=== PATIENT | male | born 1955 | race Caucasian/White ===

== ENCOUNTER 2016-10-24 06:30 | Day surgery (SDC) | payer BC ==
[~2016-10-24 06:30] MED LIST: Lactated Ringers 1,000 ML IV SCH; ceFAZolin 1 GM in Premix Bag 1 BAG IV ONE
--- NOTE | 2016-10-24 07:21 | PCM.PREANE ---
Preanesthetic Assessment - Anesthesia/Transfusion/Family Hx Anesthesia History: Prior Anesthesia Without Reaction Family History of Anesthesia Reaction: No Transfusion History: No Prior Transfusion(s) - Review of Systems General: No Symptoms Pulmonary: Cough Cardiovascular: No Symptoms Gastrointestinal: No symptoms Neurological: No Symptoms Other: Reports: None - Physical Assessment NPO Status Date: 10/23/16 O2 Sat by Pulse Oximetry: 96 Respiratory Rate: 16 Vital Signs: Last Vital Signs Temp 36.5 C 10/24/16 06:52 Pulse 55 L 10/24/16 06:52 Resp 16 10/24/16 06:52 BP 151/84 H 10/24/16 06:52 Pulse Ox 96 10/24/16 06:52 Height: 1.65 m Weight: 80.286 kg ASA Class: 3 Mental Status: Alert & Oriented x3 Airway Class: Mallampati = 2 Dentition: Reports: Normal Dentition ROM/Head Extension: Limited/Partial (marked limitation of cervical extension, s/ p posterior cerf fusion) - Allergies Allergies/Adverse Reactions: Allergies Allergy/AdvReac Type Severity Reaction Status Date / Time Sulfa (Sulfonamide Allergy Rash Verified 10/18/16 12:40 Antibiotics) - Anesthesia Plan Pre-Op Medication Ordered: None - Acknowledgements Anesthesia Type Planned: General Anesthesia Pt an Appropriate Candidate for the Planned Anesthesia: Yes Alternatives and Risks of Anesthesia Discussed w Pt/Guardian: Yes Pt/Guardian Understands and Agrees with Anesthesia Plan: Yes Additional Comments: problem list: CAD s/p stents x2 2014, Asthma/psilicosis (uses inhalers for chronic cough and wheezing), HTN, thyroid replacement, post herpetic neuralgia ( on gabipentin) PreAnesthesia Questionnaire HEENT History: Reports: Cataract Cardiovascular History: Reports: High Cholesterol, Hypertension, [place] Respiratory History: Reports: None Gastrointestinal History: Reports: None Genitourinary History: Reports: None Musculoskeletal History: Reports: Back Pain, Chronic, Fracture, Neck Pain, Chronic Other Musculoskeletal History: hx of fx neck and back, hardware in neck, hx of fx right fibula Neurological History: Reports: Other (See Below) Other Neuro History: hx of motion sickness Psychiatric History: Reports: None Endocrine/Metabolic History: Reports: Hypothyroidism Hematologic History: Reports: None Immunologic History: Reports: None Oncologic (Cancer) History: Reports: None Dermatologic History: Reports: None - Past Surgical History Head Surgeries/Procedures: Reports: None HEENT Surgical History: Reports: Cataract Surgery Cardiovascular Surgical History: Reports: Coronary Artery Stent Other Cardiovascular Surgeries/Procedures: states had [place] during Angioplasty, had 2 stents placed Respiratory Surgical History: Reports: None GI Surgical History: Reports: Appendectomy Male Surgical History: Reports: Renal Calculus Endocrine Surgical History: Reports: None Neurological Surgical History: Reports: None Musculoskeletal Surgical History: Reports: ORIF Other Musculoskeletal Surgeries/Procedures:: back and neck Oncologic Surgical History: Reports: None Dermatological Surgical History: Reports: None - SUBSTANCE USE Smoking Status *Q: Never Smoker Recreational Drug Use History: No - HOME MEDS Home Medications: Home Meds Levothyroxine Sodium [Levo-T] 112 mcg PO DAILY 10/18/16 [History] Losartan [Cozaar] 50 mg PO DAILY 10/18/16 [History] atorvaSTATin Calcium [Atorvastatin Calcium] 40 mg PO DAILY 10/18/16 [History] - CURRENT (IN HOUSE) MEDS Current Meds: Current Medications Lactated Ringer's (Ringers, Lactated) 1,000 mls @ 100 mls/hr IV ASDIRECTED SANDRA Discontinued Medications Lactated Ringer's (Ringers, Lactated) 1,000 mls @ 100 mls/hr IV ASDIRECTED SANDRA Cefazolin Sodium/Dextrose 1 gm (/ Premix) 50 mls @ 100 mls/hr IV ONCALL ONE Stop: 10/22/16 00:30 Cefazolin Sodium/Dextrose 1 gm (/ Premix) 50 mls @ 100 mls/hr IV ONCALL ONE Stop: 10/24/16 00:30
[2016-10-24] MEDS ORDERED: Midazolam 1 MG/ML 2 ML SDV ONE (07:25)
[2016-10-24] MEDS ORDERED: fentaNYL 250 MCG/5 ML SDV ONE (07:25)
[2016-10-24] MEDS ORDERED: Lidocaine 2% 5 ML SDV ONE (07:25)
[2016-10-24] MEDS ORDERED: Propofol 200 MG/20 ML SDV ONE (07:25)
[2016-10-24] MEDS ORDERED: Neostigmine Methylsulfate 1 MG/ML 5 ML Syringe ONE (07:26)
[2016-10-24] MEDS ORDERED: Ondansetron 4 MG/2 ML SDV ONE (07:26)
[2016-10-24] MEDS ORDERED: Ketorolac 30 MG/ML SDV ONE (07:26)
[2016-10-24] MEDS ORDERED: Rocuronium 10 MG/ML 10 ML Syringe ONE (07:26)
[2016-10-24] MEDS ORDERED: Iopamidol 408 MG/ML 50 ML SDV ONE (07:27)
[2016-10-24] MEDS ORDERED: fentaNYL 100 MCG/2 ML SDV ONE (08:43)
[2016-10-24] MEDS ORDERED: fentaNYL 100 MCG/2 ML SDV IVPUSH PRN (09:12)
[2016-10-24] MEDS ORDERED: Labetalol 5 MG/ML 5 ML Syringe ONE (09:57)
--- NOTE | 2016-10-24 10:34 | PCM.POSTAN ---
POST ANESTHESIA ASSESSMENT - MENTAL STATUS Mental Status: alert, oriented - RESPIRATORY Respiratory Status: respiratory rate WNL, airway patent, O2 saturation stable - CARDIOVASCULAR CV Status: pulse rate WNL, blood pressure stable - GASTROINTESTINAL GI Status: no symptoms - POST OP HYDRATION Hydration Status: adequate & stable
--- NOTE | 2016-10-24 10:56 | OR ---
SURGEON: Jazzy Coughlin M.D. DATE OF PROCEDURE: 10/24/2016 PREOPERATIVE DIAGNOSIS: Large right renal pelvis stone, 2.4 cm. POSTOPERATIVE DIAGNOSIS: Large right renal pelvis stone, 2.4 cm. OPERATION: Cystoscopy, ureteroscopy, laser lithotripsy partial, and double-J stent placement. DESCRIPTION OF PROCEDURE: The patient was given general anesthesia, placed in dorsal lithotomy position, prepped and draped in sterile drapes. Cystourethroscopy was done that was normal. No prostatic enlargement or obstruction. A guidewire and a Glidewire were advanced in the right ureter all the way up into the renal pelvis. The lower ureter was then dilated using the UroMax II balloon dilator to approximately 15-Ukrainian. The Zillow flexible ureteroscope was advanced over the guidewire. The laser fiber was then introduced and initially at 0.2 for energy, a fair amount of dusting was done. Later in the procedure, the energy was increased to 0.4, and eventually to 0.6. It took about an hour and half of applying the laser energy to the stone. The stone was still relatively large and I suspect we are left with about 2 cm of stone. At that point, a 7-Ukrainian 26 cm double-J stent was placed in the ureter and up into the renal pelvis the lower end is in the bladder. The bladder was emptied. The position of the stent was confirmed with fluoroscopy and the patient was moved to recovery room in good condition. Estimated blood loss was minimal. The patient tolerated the procedure well and was moved to recovery in good condition. GREG / BENJAMIN /[id number]
[2016-10-24 11:38] VITALS: BP 129/76
--- NOTE | 2016-10-24 11:50 | PCM48HPAN ---
Post Anesthesia Note - EVALUATION WITHIN 48HRS OF ANESTHETIC Vital Signs in Normal Range: Yes Patient Participated in Evaluation: Yes Respiratory Function Stable: Yes Airway Patent: Yes Cardiovascular Function Stable: Yes Hydration Status Stable: Yes Pain Control Satisfactory: Yes Nausea and Vomiting Control Satisfactory: Yes Mental Status Recovered: Yes
--- NOTE | 2016-10-28 08:49 | CR ---
EXAMINATION: Lithotripsy HISTORY: Stone COMPARISON: 10/17/2016 TECHNIQUE: Single view FINDINGS/IMPRESSION: Operative control film demonstrates a pigtail stent projecting near a right catarino al stone.
== END 2016-10-24 12:55 | disposition home or self-care (01) ==
LOC: MW.SDS 06:30
PROVIDERS: ATTEND Urology
PROC: 0TF38ZZ Fragmentation in Right Kidney Pelvis, Via Natural or Artificial Opening Endoscopic (ICD-10-PCS; principal; 2016-10-24)
PROC: 0T768DZ Dilation of Right Ureter with Intraluminal Device, Via Natural or Artificial Opening Endoscopic (ICD-10-PCS; 2016-10-24)
DX: N20.0 Calculus of kidney (principal); I25.2 Old myocardial infarction; I10 Essential (primary) hypertension; I25.10 Atherosclerotic heart disease of native coronary artery without angina pectoris; E78.00 Pure hypercholesterolemia, unspecified; J45.909 Unspecified asthma, uncomplicated; B02.29 Other postherpetic nervous system involvement; E03.9 Hypothyroidism, unspecified; Z88.2 Allergy status to sulfonamides; Z79.899 Other long term (current) drug therapy; Z95.5 Presence of coronary angioplasty implant and graft; Z98.49 Cataract extraction status, unspecified eye; Z90.49 Acquired absence of other specified parts of digestive tract; Z98.890 Other specified postprocedural states
CPT/HCPCS: 52356; 76001; J0690; J1885; J2250; J2405; J3010; Q9966; 00918; C1769; C1874; J2704

== ENCOUNTER 2016-11-14 10:01 | Day surgery (SDC) | payer BC ==
[~2016-11-14 10:01] MED LIST changes: +Iopamidol 408 MG/ML 50 ML SDV ONE; -ceFAZolin 1 GM in Premix Bag 1 BAG IV ONE
--- NOTE | 2016-11-14 11:08 | PCM.PREANE ---
Preanesthetic Assessment - Procedure Proposed Procedure: ESWL fro right renal pelvis stone - Anesthesia/Transfusion/Family Hx Anesthesia History: Prior Anesthesia Without Reaction (3 weeks ago underwent laser lithotripsy via ureteroscopy) Family History of Anesthesia Reaction: No Transfusion History: No Prior Transfusion(s) - Review of Systems General: Fatigue (notes relating to time of cardiac problems 2 yr ago) Pulmonary: No Symptoms Cardiovascular: Other (s/p 2 stents in coronaries 2 yr ago; hypertension and hyperlipidemia) Gastrointestinal: No symptoms Neurological: No Symptoms Other: Reports: Thyroid Problems - Physical Assessment Height: 0 in Weight: 0 oz ASA Class: 3 Mental Status: Alert & Oriented x3 Airway Class: Mallampati = 2 Dentition: Reports: Normal Dentition Thyro-Mental Finger Breadths: 4 (jut jaw) Mouth Opening Finger Breadths: 3 ROM/Head Extension: Full Lungs: Clear to auscultation, Normal respiratory effort Cardiovascular: Regular Rate, Regular Rhythm, No Murmurs - Allergies Allergies/Adverse Reactions: Allergies Allergy/AdvReac Type Severity Reaction Status Date / Time Sulfa (Sulfonamide Allergy Rash Verified 10/18/16 12:40 Antibiotics) - Blood Blood Available: No Product(s) Available: None - Acknowledgements Anesthesia Type Planned: General Anesthesia Pt an Appropriate Candidate for the Planned Anesthesia: Yes Alternatives and Risks of Anesthesia Discussed w Pt/Guardian: Yes Pt/Guardian Understands and Agrees with Anesthesia Plan: Yes PreAnesthesia Questionnaire HEENT History: Reports: Cataract Cardiovascular History: Reports: High Cholesterol, Hypertension, [place] Respiratory History: Reports: None Gastrointestinal History: Reports: None Genitourinary History: Reports: Renal Calculus Musculoskeletal History: Reports: Back Pain, Chronic, Fracture, Neck Pain, Chronic Other Musculoskeletal History: hx of fx neck and back, hardware in neck, hx of fx right fibula Neurological History: Reports: Other (See Below) Other Neuro History: hx of motion sickness Psychiatric History: Reports: None Endocrine/Metabolic History: Reports: Hypothyroidism Hematologic History: Reports: None Immunologic History: Reports: None Oncologic (Cancer) History: Reports: None Dermatologic History: Reports: None - Past Surgical History Head Surgeries/Procedures: Reports: None HEENT Surgical History: Reports: Cataract Surgery Cardiovascular Surgical History: Reports: Coronary Artery Stent Other Cardiovascular Surgeries/Procedures: states had [place] during Angioplasty, had 2 stents placed Respiratory Surgical History: Reports: None GI Surgical History: Reports: Appendectomy Male Surgical History: Reports: Lithotripsy (ESWL), Renal Calculus Endocrine Surgical History: Reports: None Neurological Surgical History: Reports: None Musculoskeletal Surgical History: Reports: ORIF Other Musculoskeletal Surgeries/Procedures:: back and neck Oncologic Surgical History: Reports: None Dermatological Surgical History: Reports: None - SUBSTANCE USE Smoking Status *Q: Never Smoker Recreational Drug Use History: No - HOME MEDS Home Medications: Home Meds Levothyroxine Sodium [Levo-T] 112 mcg PO DAILY 10/18/16 [History] Losartan [Cozaar] 50 mg PO DAILY 10/18/16 [History] atorvaSTATin Calcium [Atorvastatin Calcium] 40 mg PO DAILY 10/18/16 [History] - CURRENT (IN HOUSE) MEDS Current Meds: Current Medications Lactated Ringer's (Ringers, Lactated) 1,000 mls @ 100 mls/hr IV ASDIRECTED SANDRA Discontinued Medications Iopamidol (Isovue-200 (41%)) Confirm Administered Dose 50 ml .ROUTE .STK-MED ONE Stop: 11/14/16 07:02
[2016-11-14] MEDS ORDERED: Lidocaine 2% 5 ML SDV ONE (11:38)
[2016-11-14] MEDS ORDERED: Midazolam 1 MG/ML 2 ML SDV ONE (11:39)
[2016-11-14] MEDS ORDERED: Propofol 200 MG/20 ML SDV ONE (11:39)
[2016-11-14] MEDS ORDERED: fentaNYL 250 MCG/5 ML SDV ONE (11:40)
[2016-11-14] MEDS ORDERED: ceFAZolin 1 GM Vial ONE (12:35)
[2016-11-14] MEDS ORDERED: ePHEDrine 50 MG/ML SDV ONE (12:46)
[2016-11-14] MEDS ORDERED: fentaNYL 100 MCG/2 ML SDV IVPUSH PRN (13:24)
[2016-11-14 14:51] VITALS: BP 124/74
--- NOTE | 2016-11-14 15:18 | OR ---
SURGEON: Jazzy Coughlin M.D. DATE OF PROCEDURE: 11/14/2016 PREOPERATIVE DIAGNOSIS: Large right renal pelvis stone, initially 2.4 cm treated with laser the first time, it is now about 2 cm. POSTOPERATIVE DIAGNOSIS: Large right renal pelvis stone, initially 2.4 cm treated with laser the first time, it is now about 2 cm. OPERATION: Extracorporeal shock wave lithotripsy. DESCRIPTION OF PROCEDURE: The patient was given general anesthesia. The position of the patient was adjusted, so the stone could be treated and received a total of 2000 shocks, monitoring as we go along the stone seem to have changed, however, with at least two or three relatively good size pieces still intact. With that done, the procedure was terminated. The stent will be left in. The patient tolerated the procedure well. He was moved to recovery room in good condition. He will be seen in the office in 2 weeks to arrange for the next ESWL in about 3 weeks. GREG / BENJAMIN /[id number]
== END 2016-11-14 15:21 | disposition home or self-care (01) ==
LOC: MW.SDS 10:01
PROVIDERS: ATTEND Urology
DX: N20.0 Calculus of kidney (principal); Z88.2 Allergy status to sulfonamides; Z79.899 Other long term (current) drug therapy
CPT/HCPCS: 50590; J0690; J2250; J3010; J7120; 00872; J2704; Q9966

== ENCOUNTER 2016-12-12 06:34 | Day surgery (SDC) | payer BC ==
[2016-12-12] MEDS ORDERED: Lactated Ringers 1,000 ML IV SCH (07:00)
[2016-12-12] MEDS ORDERED: Rocuronium 10 MG/ML 10 ML Syringe ONE (07:11)
[2016-12-12] MEDS ORDERED: Ondansetron 4 MG/2 ML SDV ONE (07:11)
[2016-12-12] MEDS ORDERED: Midazolam 1 MG/ML 2 ML SDV ONE (07:11)
[2016-12-12] MEDS ORDERED: Neostigmine Methylsulfate 1 MG/ML 5 ML Syringe ONE (07:11)
[2016-12-12] MEDS ORDERED: fentaNYL 250 MCG/5 ML SDV ONE (07:11)
[2016-12-12] MEDS ORDERED: Lidocaine 2% 5 ML SDV ONE (07:11)
[2016-12-12] MEDS ORDERED: Propofol 200 MG/20 ML SDV ONE (07:11)
--- NOTE | 2016-12-12 07:12 | PCM.PREANE ---
Preanesthetic Assessment - Anesthesia/Transfusion/Family Hx Anesthesia History: Prior Anesthesia Without Reaction Family History of Anesthesia Reaction: No Transfusion History: No Prior Transfusion(s) Intubation History: Unknown - Review of Systems General: No Symptoms Pulmonary: No Symptoms Cardiovascular: No Symptoms Gastrointestinal: No Symptoms Neurological: No Symptoms Other: Reports: None - Physical Assessment Height: 1.65 m Weight: 78.018 kg ASA Class: 2 Mental Status: Alert & Oriented x3 Airway Class: Mallampati = 2 Dentition: Reports: Normal Dentition Thyro-Mental Finger Breadths: 3 Mouth Opening Finger Breadths: 3 ROM/Head Extension: Limited/Partial Lungs: Clear to Auscultation, Normal Respiratory Effort Cardiovascular: Regular Rate, Regular Rhythm - Allergies Allergies/Adverse Reactions: Allergies Allergy/AdvReac Type Severity Reaction Status Date / Time Sulfa (Sulfonamide Allergy Rash Verified 10/18/16 12:40 Antibiotics) - Blood Blood Available: No - Anesthesia Plan Pre-Op Medication Ordered: None - Acknowledgements Anesthesia Type Planned: General Anesthesia Pt an Appropriate Candidate for the Planned Anesthesia: Yes Alternatives and Risks of Anesthesia Discussed w Pt/Guardian: Yes Pt/Guardian Understands and Agrees with Anesthesia Plan: Yes PreAnesthesia Questionnaire HEENT History: Reports: Cataract Cardiovascular History: Reports: High Cholesterol, Hypertension, [place], Stents (x1) Respiratory History: Reports: Asthma (questionable), SOB (if he walks fast) Gastrointestinal History: Reports: None Genitourinary History: Reports: Renal Calculus Musculoskeletal History: Reports: Back Pain, Chronic, Fracture, Neck Pain, Chronic Other Musculoskeletal History: hx of fx neck and back, hardware in neck, hx of fx right fibula Neurological History: Reports: Other (See Below) Other Neuro History: hx of motion sickness Psychiatric History: Reports: None Endocrine/Metabolic History: Reports: Hypothyroidism Hematologic History: Reports: None Immunologic History: Reports: None Oncologic (Cancer) History: Reports: None Dermatologic History: Reports: None - Past Surgical History Head Surgeries/Procedures: Reports: None HEENT Surgical History: Reports: Cataract Surgery, Naso-Sinus Surgery Cardiovascular Surgical History: Reports: Coronary Artery Stent Other Cardiovascular Surgeries/Procedures: states had [place] during Angioplasty, had 2 stents placed 2 years ago Respiratory Surgical History: Reports: None GI Surgical History: Reports: Appendectomy Male Surgical History: Reports: Lithotripsy (ESWL), Renal Calculus (laser litho) Endocrine Surgical History: Reports: None Neurological Surgical History: Reports: None Musculoskeletal Surgical History: Reports: ORIF Other Musculoskeletal Surgeries/Procedures:: back and neck x3 Oncologic Surgical History: Reports: None Dermatological Surgical History: Reports: None - SUBSTANCE USE Smoking Status *Q: Never Smoker Recreational Drug Use History: No - HOME MEDS Home Medications: Home Meds Levothyroxine Sodium [Levo-T] 112 mcg PO DAILY 10/18/16 [History] Losartan [Cozaar] 50 mg PO DAILY 10/18/16 [History] atorvaSTATin Calcium [Atorvastatin Calcium] 40 mg PO DAILY 10/18/16 [History] oxyCODONE HCl/Acetaminophen [Endocet 7.5-325 mg Tablet] 1 tab PO ASDIRECTED PRN 12/11/16 [History] - CURRENT (IN HOUSE) MEDS Current Meds: Current Medications Lactated Ringer's (Ringers, Lactated) 1,000 mls @ 100 mls/hr IV ASDIRECTED SANDRA
[2016-12-12] MEDS ORDERED: Iopamidol 408 MG/ML 50 ML SDV ONE (07:41)
[2016-12-12] MEDS ORDERED: ePHEDrine 50 MG/ML SDV ONE (08:20)
[2016-12-12] MEDS ORDERED: ceFAZolin 1 GM Vial ONE (08:21)
[2016-12-12] MEDS ORDERED: Phenylephrine/Normal Saline 100 MCG/ML 10 ML Syringe ONE (08:32)
[2016-12-12] MEDS: fentaNYL 100 MCG/2 ML SDV IVPUSH PRN ×2 (09:57→10:02)
--- NOTE | 2016-12-12 10:26 | PCM.POSTAN ---
POST ANESTHESIA ASSESSMENT - MENTAL STATUS Mental Status: Alert, Oriented - RESPIRATORY Respiratory Status: respiratory rate WNL, Airway Patent, O2 Saturation Stable - CARDIOVASCULAR CV Status: Pulse Rate WNL, Blood Pressure Stable - GASTROINTESTINAL GI Status: No Symptoms - PAIN Pain Score: 6 (given fentanyl to lower pain) - POST OP HYDRATION Hydration Status: Adequate & Stable
[2016-12-12 11:26] VITALS: BP 152/87
--- NOTE | 2016-12-12 15:07 | OR ---
SURGEON: Jazzy Coughlin M.D. DATE OF PROCEDURE: 12/12/2016 PREOPERATIVE DIAGNOSIS: Residual stone, right renal pelvis. POSTOPERATIVE DIAGNOSIS: Residual stone, right renal pelvis. OPERATION: Extracorporeal shock wave lithotripsy. DESCRIPTION: Patient was given general anesthesia. Position of the patient is adjusted so the stone could be treated and eventually received a total of 2200 shocks. Looking at the stone during the treatment, the result appeared quite adequate. With that done, the procedure was terminated. The patient was then placed in the frog-leg position. The 22-Surinamese scope was introduced in the bladder without difficulty. The double-J stent was grasped and removed. With that the procedure was done and he was moved to recovery room in good condition. GREG / BENJAMIN /[id number]
== END 2016-12-12 10:50 | disposition home or self-care (01) ==
LOC: MW.SDS 06:34
PROVIDERS: ATTEND Urology
DX: N20.0 Calculus of kidney (principal); Z88.2 Allergy status to sulfonamides; Z79.899 Other long term (current) drug therapy
CPT/HCPCS: 50590; J0690; J2250; J2405; J3010; J7120; 00873; J2704; Q9966

== ENCOUNTER 2017-09-23 07:47 | Day surgery (SDC) | payer BC ==
[~2017-09-23 07:47] MED LIST changes: -Iopamidol 408 MG/ML 50 ML SDV ONE; +Sodium Chloride 0.9% 2.5 ML Syringe FLUSH PRN; +ceFAZolin 1 GM Vial IM ONE
[2017-09-23] MEDS ORDERED: Iopamidol 408 MG/ML 50 ML SDV ONE (08:02)
--- NOTE | 2017-09-23 08:34 | PCM.PREANE ---
Preanesthetic Assessment - Anesthesia/Transfusion/Family Hx Anesthesia History: Prior Anesthesia Without Reaction Family History of Anesthesia Reaction: No Transfusion History: No Prior Transfusion(s) Intubation History: Unknown - Review of Systems General: No Symptoms Pulmonary: No Symptoms Cardiovascular: No Symptoms Gastrointestinal: No Symptoms Neurological: No Symptoms - Physical Assessment NPO Status Date: 09/22/17 O2 Sat by Pulse Oximetry: 95 Respiratory Rate: 16 Vital Signs: Last Vital Signs Temp 36.4 C 09/23/17 08:24 Pulse 48 L 09/23/17 08:24 Resp 16 09/23/17 08:24 BP 159/78 H 09/23/17 08:24 Pulse Ox 95 09/23/17 08:24 Height: 1.65 m Weight: 77.111 kg ASA Class: 3 Mental Status: Alert & Oriented x3 Airway Class: Mallampati = 1 Dentition: Reports: Normal Dentition ROM/Head Extension: Full Lungs: Clear to Auscultation, Normal Respiratory Effort Cardiovascular: Regular Rate, Regular Rhythm - Allergies Allergies/Adverse Reactions: Allergies Allergy/AdvReac Type Severity Reaction Status Date / Time Sulfa (Sulfonamide Allergy Rash Verified 09/18/17 10:38 Antibiotics) - Anesthesia Plan Pre-Op Medication Ordered: None - Acknowledgements Anesthesia Type Planned: General Anesthesia Pt an Appropriate Candidate for the Planned Anesthesia: Yes Alternatives and Risks of Anesthesia Discussed w Pt/Guardian: Yes Pt/Guardian Understands and Agrees with Anesthesia Plan: Yes Additional Comments: PMH: CAD s/p coronary stent in RCA and Cx about 2-3 yr ago, had AMI during analytical lab analyst visit, now off plavix, still on aspirin, last dose yesterday. Also hld , thyroid replacement, htn, ibs (patient reports no dx of DM). PLAN: GA, ETT or LMA based upon location of the stones. PreAnesthesia Questionnaire HEENT History: Reports: Cataract Cardiovascular History: Reports: High Cholesterol, Hypertension, [place], Stents Respiratory History: Reports: Asthma Gastrointestinal History: Reports: Other (See Below) Other Gastrointestinal History: occasional heartburn Genitourinary History: Reports: Renal Calculus Musculoskeletal History: Reports: Back Pain, Chronic, Fracture, Neck Pain, Chronic Other Musculoskeletal History: hx of fx neck and back, hardware in neck, hx of fx right fibula Neurological History: Reports: Other (See Below) Other Neuro History: hx of motion sickness Psychiatric History: Reports: None Endocrine/Metabolic History: Reports: Hypothyroidism Hematologic History: Reports: None Immunologic History: Reports: None Oncologic (Cancer) History: Reports: None Dermatologic History: Reports: None - Past Surgical History Head Surgeries/Procedures: Reports: None HEENT Surgical History: Reports: Cataract Surgery, Naso-Sinus Surgery Cardiovascular Surgical History: Reports: Coronary Artery Stent Other Cardiovascular Surgeries/Procedures: states had [place] during Angioplasty, had 2 stents placed 2 years ago Respiratory Surgical History: Reports: None GI Surgical History: Reports: Appendectomy Male Surgical History: Reports: Lithotripsy (ESWL), Renal Calculus Endocrine Surgical History: Reports: None Neurological Surgical History: Reports: None Other Musculoskeletal Surgeries/Procedures:: back x1 and neck x3 Oncologic Surgical History: Reports: None Dermatological Surgical History: Reports: None - SUBSTANCE USE Smoking Status *Q: Never Smoker Recreational Drug Use History: No - HOME MEDS Home Medications: Home Meds Levothyroxine Sodium [Levo-T] 112 mcg PO DAILY 10/18/16 [History] Losartan [Cozaar] 50 mg PO DAILY 10/18/16 [History] atorvaSTATin Calcium [Atorvastatin Calcium] 40 mg PO BEDTIME 10/18/16 [History] Albuterol [Proair HFA] 1 - 2 puff INH ASDIRECTED PRN 09/18/17 [History] Calcium Carbonate [Tums] 1 tab.chew CHEW ASDIRECTED PRN 09/18/17 [History] Ibuprofen 2 - 4 tab PO ASDIRECTED PRN 09/18/17 [History] - CURRENT (IN HOUSE) MEDS Current Meds: Current Medications Lactated Ringer's (Ringers, Lactated) 1,000 mls @ 100 mls/hr IV ASDIRECTED SANDRA Last Admin: 09/23/17 08:28 Dose: 100 mls/hr Sodium Chloride (Saline Flush) 2.5 ml FLUSH ASDIRECTED PRN PRN Reason: Keep Vein Open Discontinued Medications Cefazolin Sodium (Ancef) 1 gm IM ONCALL ONE Stop: 09/23/17 00:02 Iopamidol (Isovue-200 (41%)) Confirm Administered Dose 50 ml .ROUTE .STK-MED ONE Stop: 09/23/17 08:03
[2017-09-23] MEDS ORDERED: Lidocaine 2% 5 ML SDV ONE (09:35)
[2017-09-23] MEDS ORDERED: Propofol 200 MG/20 ML SDV ONE ×2 (09:35→11:23)
[2017-09-23] MEDS ORDERED: fentaNYL 250 MCG/5 ML SDV ONE (09:35)
[2017-09-23] MEDS ORDERED: Midazolam 1 MG/ML 2 ML SDV ONE (09:35)
[2017-09-23] MEDS ORDERED: fentaNYL 100 MCG/2 ML SDV IVPUSH PRN (11:03)
[2017-09-23] MEDS ORDERED: Ondansetron 4 MG/2 ML SDV ONE (11:15)
[2017-09-23] MEDS ORDERED: Glycopyrrolate 0.2 MG/ML SDV ONE ×2 (11:16)
[2017-09-23] MEDS ORDERED: Neostigmine Methylsulfate 1 MG/ML 5 ML Syringe ONE (11:17)
[2017-09-23] MEDS ORDERED: Ketorolac 30 MG/ML SDV ONE (11:22)
--- NOTE | 2017-09-23 12:43 | OR ---
SURGEON: Jazzy Coughlin M.D. DATE OF PROCEDURE: 09/23/2017 PREOPERATIVE DIAGNOSIS: Residual stones in the right renal pelvis. POSTOPERATIVE DIAGNOSIS: Residual stones in the right renal pelvis. OPERATION: Renoscopy, laser lithotripsy. DESCRIPTION OF PROCEDURE: The patient was given general anesthesia, placed in dorsal lithotomy position, prepped and draped in sterile drapes. Cystourethroscopy was done that was normal. A guidewire was advanced in the right ureter all the way up into the renal pelvis. Rigid ureteroscope was advanced in the ureter, but could not reach into the renal pelvis. So that was withdrawn, another guidewire was put in, and the flexible ureteroscope was used to gain access into the renal pelvis and all the stones were visualized and broken up into passable pieces. With that done, the procedure was terminated and the patient was sent back to recovery room in good condition. GREG / BENJAMIN /[id number]
--- NOTE | 2017-09-23 13:16 | PCM48HPAN ---
Post Anesthesia Note - EVALUATION WITHIN 48HRS OF ANESTHETIC Vital Signs in Normal Range: Yes Patient Participated in Evaluation: Yes Respiratory Function Stable: Yes Airway Patent: Yes Cardiovascular Function Stable: Yes Hydration Status Stable: Yes Pain Control Satisfactory: Yes Nausea and Vomiting Control Satisfactory: Yes Mental Status Recovered: Yes Resp Rate: 16
--- NOTE | 2017-09-23 13:16 | PCM.POSTAN ---
POST ANESTHESIA ASSESSMENT - MENTAL STATUS Mental Status: Alert, Oriented - RESPIRATORY Respiratory Status: Respiratory Rate WNL, Airway Patent, O2 Saturation Stable - CARDIOVASCULAR CV Status: Pulse Rate WNL, Blood Pressure Stable - GASTROINTESTINAL GI Status: No Symptoms - POST OP HYDRATION Hydration Status: Adequate & Stable
[2017-09-23 13:37] VITALS: BP 124/70
--- NOTE | 2017-09-23 16:18 | CR ---
EXAMINATION: Ureteroscopy HISTORY: Surgery COMPARISON: None TECHNIQUE: 2 images provided FINDINGS/IMPRESSION: Operative control films demonstrate selection of the right ureter several adjace nt densities consistent with nephrolithiasis.
== END 2017-09-23 13:59 | disposition home or self-care (01) ==
LOC: MW.SDS 07:47
PROVIDERS: ATTEND Urology
DX: N20.0 Calculus of kidney (principal); I10 Essential (primary) hypertension; E11.9 Type 2 diabetes mellitus without complications; J45.909 Unspecified asthma, uncomplicated; E03.9 Hypothyroidism, unspecified; E78.00 Pure hypercholesterolemia, unspecified; Z87.442 Personal history of urinary calculi; Z79.899 Other long term (current) drug therapy; Z88.2 Allergy status to sulfonamides
CPT/HCPCS: 52353; 76001; 88300; C1769; J1885; J2250; J2405; J3010; J7120; J2704; Q9966